=== PATIENT | female | born 1990 | race Caucasian/White ===

== ENCOUNTER 2018-11-15 21:23 | Emergency (ER) | payer SELFPAY ==
[~2018-11-15] VITALS: Ht 154.9 cm; Wt 49.4 kg
[2018-11-15 21:37] VITALS: BP 135/107; Ht 154.9 cm; Wt 49.4 kg
== END 2018-11-15 22:34 | disposition left against medical advice (07) ==
LOC: ED 21:23
DX: Z53.21 Procedure and treatment not carried out due to patient leaving prior to being seen by health care provider (principal)